=== PATIENT | female | born 1980 | race Caucasian/White ===

== ENCOUNTER 2019-03-09 18:31 | Emergency (ER) | payer OTHER ==
[2019-03-09 18:38] VITALS: BP 141/85; PULSE 102; RESP 20; TEMP 97.8
--- NOTE | 2019-03-09 18:53 | ED ---
General Adult HPI - General Chief complaint: Abdominal Pain Stated complaint: and cramping Time Seen by Provider: 03/09/19 18:41 Source: patient, RN notes reviewed, old records reviewed Mode of arrival: ambulatory Limitations: no limitations - History of Present Illness Initial comments: 38-year-old female patient, recently discovered that she was approximately one week ago presents ED chief complaint of suprapubic cramping. Denies any vaginal bleeding. Denies any other complaints denies any concern for STI. Systemic: Pt denies fatigue, fever/chills, rash. Pt denies weakness, night sweats, weight loss. Neuro: Pt denies headache, visual disturbances, syncope or pre-syncope. HEENT: Pt denies ocular discharge or irritation, otalgia, rhinorrhea, pharyngitis or notable lymphadenopathy. Cardiopulmonary: Pt denies chest pain, SOB, heart palpitations, dyspnea on exertion. Abdominal/GI: Pt denies n/v/d. : Pt denies dysuria, burning w/ urination, frequency/urgency. Denies new onset urinary or bowel incontinence. MSK: Pt denies myalgia, loss of strength or function in extremities. Neuro: Pt denies new onset weakness, paresthesias. - Related Data Home Medications Medication Instructions Recorded Confirmed Cetirizine HCl [Zyrtec] 10 mg PO HS 12/14/13 12/14/13 Previous Rx's Medication Instructions Recorded Escitalopram [Lexapro] 10 mg PO DAILY #30 tablet 12/16/13 lamoTRIgine [LaMICtal] 150 mg PO HS #45 tab 12/16/13 traZODone HCL [Desyrel] 50 mg PO HS #30 tablet 12/16/13 Ibuprofen [Motrin] 600 mg PO Q6HR PRN #20 tab 06/19/15 Pnv No.95/Ferrous Fum/Folic AC 1 each PO Q24HR 30 Days #30 tablet 03/09/19 [ Multivitamin Tablet] Allergies Allergy/AdvReac Type Severity Reaction Status Date / Time grass pollen-perennial rye, Allergy Wheezing Verified 03/09/19 18:38 standar [grass poll-perennial rye,std] Review of Systems ROS Statement: Those systems with pertinent positive or pertinent negative responses have been documented in the HPI. ROS Other: All systems not noted in ROS Statement are negative. Past Medical History Past Medical History: Asthma, Respiratory Disorder, Sleep Apnea/CPAP/BIPAP, Thyroid Disorder Additional Past Medical History / Comment(s): Bipolar disorder, pt states that she needs a bi-pap but can not afford one. pt takes the lowest dose of medication for thyroid disorder and pt states that she has to wear a mask when dusting to her asthma History of Any Multi-Drug Resistant Organisms: None Reported Past Surgical History: Hernia Repair Additional Past Surgical History / Comment(s): lower left hernia 1984, 2009 rhino plasty for sinus cavity Past Anesthesia/Blood Transfusion Reactions: No Reported Reaction Past Psychological History: Anxiety, Bipolar, Depression, PTSD Smoking Status: Former smoker Past Alcohol Use History: Occasional Past Drug Use History: None Reported General Exam - General Exam Comments Initial Comments: Constitutional: NAD, AOX3, Pt has pleasant affect. HEENT: NC/AT, trachea midline, neck supple, no lymphadenopathy. Posterior pharynx non erythematous, without exudates. External ears appear normal, without discharge. Mucous membranes moist. Eyes PERRLA, EOM intact. There is no scleral icterus. No pallor noted. Cardiopulmonary: RRR, no murmurs, rubs or gallops, no JVD noted. Lungs CTAB in anterior and posterior sterling. No peripheral edema. Abdominal exam: Abdomen soft and non-distended. Abdomen non-tender to palpation in all 4 quadrants. Bowel sounds active in LLQ. No hepatosplenomegaly. No ecchymosis Neuro: CN II-XII grossly intact. No nuchal rigidity. No raccon eyes, no wong sign, no hemotympanum. No cervical spinal tenderness. MSK: No posterior calf tenderness bilaterally, homans sign negative bilaterally. Posterior tibialis and radial pulse +2 bilaterally. Sensation intact in upper and lower extremities. Full active ROM in upper and lower extremities, 5/5 stregnth. Limitations: no limitations Course Vital Signs 03/09/19 18:32 Temperature 97.8 F Pulse Rate 102 H Respiratory 20 Rate Blood Pressure 141/85 O2 Sat by Pulse 98 Oximetry Medical Decision Making - Medical Decision Making 38-year-old female patient, recently discovered she was presents ED with purpura cramping, no vaginal bleeding. CBC, CMP non-impressive. HCG Quant 47421. UA is fully plus for ketones. She is eating and drinking in room. Transvaginal ultrasound displayed early gestation, small subchorionic hemorrh age. Blood type A positive. Patient was discharged with vitamins, follow-up with primary care provider and OB. Case discussed with Dr. Cuellar. - Lab Data Result diagrams: 03/09/19 19:25 03/09/19 19:25 Lab Results 03/09/19 03/09/19 03/09/19 Range/Units 19:25 19:25 19:25 WBC 12.8 H (3.8-10.6) k/uL RBC 4.48 (3.80-5.40) m/uL Hgb 13.4 (11.4-16.0) gm/dL Hct 39.7 (34.0-46.0) % MCV 88.7 (80.0-100.0) fL MCH 29.8 (25.0-35.0) pg MCHC 33.6 (31.0-37.0) g/dL RDW 14.9 (11.5-15.5) % Plt Count 398 (150-450) k/uL Neutrophils % 83 % Lymphocytes % 12 % Monocytes % 3 % Eosinophils % 1 % Basophils % 0 % Neutrophils # 10.6 H (1.3-7.7) k/uL Lymphocytes # 1.5 (1.0-4.8) k/uL Monocytes # 0.4 (0-1.0) k/uL Eosinophils # 0.1 (0-0.7) k/uL Basophils # 0.0 (0-0.2) k/uL Sodium 137 (137-145) mmol/L Potassium 4.0 (3.5-5.1) mmol/L Chloride 106 (98-107) mmol/L Carbon Dioxide 19 L (22-30) mmol/L Anion Gap 12 mmol/L BUN 12 (7-17) mg/dL Creatinine 0.54 (0.52-1.04) mg/dL Est GFR (CKD-EPI)AfAm >90 (>60 ml/min/1.73 sqM) Est GFR (CKD-EPI)NonAf >90 (>60 ml/min/1.73 sqM) Glucose 127 H (74-99) mg/dL Calcium 9.8 (8.4-10.2) mg/dL Total Bilirubin 0.3 (0.2-1.3) mg/dL AST 23 (14-36) U/L ALT 30 (9-52) U/L Alkaline Phosphatase 71 (38-126) U/L Total Protein 7.0 (6.3-8.2) g/dL Albumin 4.2 (3.5-5.0) g/dL HCG, Qual Detected HCG, Quant 90779.0 mIU/mL Urine Color Urine Appearance (Clear) Urine pH (5.0-8.0) Ur Specific Cameron (1.001-1.035) Urine Protein (Negative) Urine Glucose (UA) (Negative) Urine Ketones (Negative) Urine Blood (Negative) Urine Nitrite (Negative) Urine Bilirubin (Negative) Urine Urobilinogen (<2.0) mg/dL Ur Leukocyte Esterase (Negative) Blood Type Blood Type Recheck Antibody Screen Spec Expiration Date 03/09/19 03/09/19 Range/Units 19:37 21:14 WBC (3.8-10.6) k/uL RBC (3.80-5.40) m/uL Hgb (11.4-16.0) gm/dL Hct (34.0-46.0) % MCV (80.0-100.0) fL MCH (25.0-35.0) pg MCHC (31.0-37.0) g/dL RDW (11.5-15.5) % Plt Count (150-450) k/uL Neutrophils % % Lymphocytes % % Monocytes % % Eosinophils % % Basophils % % Neutrophils # (1.3-7.7) k/uL Lymphocytes # (1.0-4.8) k/uL Monocytes # (0-1.0) k/uL Eosinophils # (0-0.7) k/uL Basophils # (0-0.2) k/uL Sodium (137-145) mmol/L Potassium (3.5-5.1) mmol/L Chloride (98-107) mmol/L Carbon Dioxide (22-30) mmol/L Anion Gap mmol/L BUN (7-17) mg/dL Creatinine (0.52-1.04) mg/dL Est GFR (CKD-EPI)AfAm (>60 ml/min/1.73 sqM) Est GFR (CKD-EPI)NonAf (>60 ml/min/1.73 sqM) Glucose (74-99) mg/dL Calcium (8.4-10.2) mg/dL Total Bilirubin (0.2-1.3) mg/dL AST (14-36) U/L ALT (9-52) U/L Alkaline Phosphatase (38-126) U/L Total Protein (6.3-8.2) g/dL Albumin (3.5-5.0) g/dL HCG, Qual HCG, Quant mIU/mL Urine Color Yellow Urine Appearance Clear (Clear) Urine pH 6.0 (5.0-8.0) Ur Specific Cameron 1.022 (1.001-1.035) Urine Protein Negative (Negative) Urine Glucose (UA) Negative (Negative) Urine Ketones 4+ H (Negative) Urine Blood Negative (Negative) Urine Nitrite Negative (Negative) Urine Bilirubin Negative (Negative) Urine Urobilinogen <2.0 (<2.0) mg/dL Ur Leukocyte Esterase Negative (Negative) Blood Type A Positive Blood Type Recheck CABO Indicated Antibody Screen NEGATIVE Spec Expiration Date 03/12/2019 - 2314 Disposition Clinical Impression: Abdominal cramping Disposition: HOME SELF-CARE Condition: Stable Instructions (If sedation given, give patient instructions): (ED) Additional Instructions: Patient to adhere to previously discussed treatment plan and will take medication(s) as directed. Patient to follow up with PCP in 1-2 days. Patient to return to ED if symptoms do not improve. Follow up with primary care provider and [facility]. Prescriptions: Pnv No.95/Ferrous Fum/Folic AC [ Multivitamin Tablet] 1 each PO Q24HR 30 Days #30 tablet Is patient prescribed a controlled substance at d/c from ED?: No Referrals: Maury Prather MD [Primary Care Provider] - 1-2 days
[2019-03-09 19:51] LABS: Appearance,Urine Clear (Clear); Bilirubin,Urine Negative (Negative); Blood,Urine Negative (Negative); Color,Urine Yellow; Glucose,Urine (UA) Negative (Negative); Ketones,Urine 4+ (Negative); Leukocyte Esterase,Urine Negative (Negative); Nitrite,Urine Negative (Negative); Protein,Urine Negative (Negative); Specific Gravity,Urine 1.022 (1.001-1.035); Urobilinogen,Urine <2.0 mg/dL (<2.0)
[2019-03-09 19:54] LABS: Basophils % (A) 0 %; Eosinophils # (A) 0.1 k/uL (0-0.7); Eosinophils % (A) 1 %; HCT 39.7 % (34.0-46.0); HGB 13.4 gm/dL (11.4-16.0); Lymphocytes # (A) 1.5 k/uL (1.0-4.8); Lymphocytes % (A) 12 %; MCH 29.8 pg (25.0-35.0); MCHC 33.6 g/dL (31.0-37.0); MCV 88.7 fL (80.0-100.0); Mean Platelet Volume 7.9; Monocytes # (A) 0.4 k/uL (0-1.0); Monocytes % (A) 3 %; Neutrophils # (A) 10.6 k/uL (1.3-7.7); Neutrophils % (A) 83 %; Platelet Count 398 k/uL (150-450); RBC 4.48 m/uL (3.80-5.40); RDW 14.9 % (11.5-15.5); WBC 12.8 k/uL (3.8-10.6)
[2019-03-09 20:05] LABS: HCG,Qualitative Serum Detected
[2019-03-09 20:08] LABS: ALT 30 U/L (9-52); AST 23 U/L (14-36); African American GFR (CKD) >90 (>60 ml/min/1.73 sqM); Albumin 4.2 g/dL (3.5-5.0); Alkaline Phosphatase 71 U/L (38-126); Anion Gap 12 mmol/L; Blood Urea Nitrogen 12 mg/dL (7-17); Calcium 9.8 mg/dL (8.4-10.2); Carbon Dioxide 19 mmol/L (22-30); Chloride 106 mmol/L (98-107); Glucose 127 mg/dL (74-99); Sodium 137 mmol/L (137-145); Total Bilirubin 0.3 mg/dL (0.2-1.3)
--- NOTE | 2019-03-09 20:47 | US ---
EXAMINATION TYPE: Transabdominal DATE OF EXAM: 03/09/2019 8:08 PM COMPARISON: NONE CLINICAL HISTORY: Pain. cramping, just found out she is EXAM PERFORMED: Transvaginal (TV) and Transabdominal (TA), endovaginal scanning performed for better evaluation of the uterus and ovaries EXAM MEASUREMENTS: GESTATIONAL AGE / DATING Dates by LMP: (5 weeks/1 days) EDC: 11/08/2019 Dates by Current Scan for: (5 weeks/3 days) EDC: 11/06/2019 MATERNAL ANATOMY Uterus: 7.3 x 4.4 x 4.0 cm Right Ovary: 3.0 x 1.5 x 1.7 cm Left Ovary: 3.2 x 2.1 x 1.8 cm Post CDS / Adnexa: trace amount of fluid seen in cul de sac Presence of free fluid: no Presence of corpus luteal cyst: left ovarian lesion with peripheral vascular flow= 1.6 x 1.6 x 1.6 cm Presence of subchorionic bleed: 0.9 x 1.3 x 0.6 cm GESTATION / SURVEY CRL: Not seen MSD: 1.3 cm (5 weeks/3 days) Yolk Sac (normal less than 6mm): 2.2 mm IUP: GS and YS seen within endometrial cavity Date of LMP: 02/01/2019, G1 Beta HcG (if available): Not available at this time GS and YS seen within endometrial cavity. CRL not visualized at this time. Grayscale and color Doppler imaging performed. Color flow noted to the ovaries. IMPRESSION: Findings may represent an early gestation, follow-up suggested. Small subchorionic hemorrhage suspect ed.
[2019-03-09] MEDS ORDERED: SODIUM CHLORIDE 0.9% 1,000 ML IV STA (20:59)
== END 2019-03-09 22:27 | disposition home or self-care (01) ==
LOC: EC 18:31
DX: O99.89 Other specified diseases and conditions complicating pregnancy, childbirth and the puerperium (principal); O99.351 Diseases of the nervous system complicating pregnancy, first trimester; R10.30 Lower abdominal pain, unspecified; G47.30 Sleep apnea, unspecified; Z3A.01 Less than 8 weeks gestation of pregnancy; Z87.891 Personal history of nicotine dependence; Z79.899 Other long term (current) drug therapy; Z99.89 Dependence on other enabling machines and devices
CPT/HCPCS: 36415; 76801; 76817; 80053; 81003; 84702; 84703; 85025; 86850; 86900; 86901; 96360; 99284